=== PATIENT | male | born 1970 | race Two or more races ===

== ENCOUNTER 2021-05-21 18:24 | Emergency (ER) | payer SELFPAY ==
[~2021-05-21] VITALS: Ht 172.7 cm; Wt 72.6 kg
[2021-05-21] MEDS ORDERED: ACETAMINOPHEN 500 MG TAB PO ONE (19:45)
[2021-05-21 21:41] LABS: Basophils # (auto) 0 10 ^3/uL (0-0.2); Eosinophils # (auto) 0 10 ^3/uL (0-0.8); Eosinophils % (auto) 0.1 % (0.0-7.0); Lymphocytes # (auto) 0.7 10 ^3/uL (0.4-5.4); Monocytes # (auto) 0.3 10 ^3/uL (0-1.3); Neutrophils # (auto) 2.2 10 ^3/uL (1.6-8.6); White Blood Cell 3.3 10^3/uL (4.4-10.8)
[2021-05-21 21:46] LABS: Basophils % (auto) 0.4 % (0.0-2.0); Hematocrit 28.4 % (41.0-53.0); Hemoglobin 9.2 g/dL (13.5-17.5); Lymphocytes % (auto) 21.9 % (10.0-50.0); Mean Corpuscular Hemoglobin 22.4 pg (28.0-32.0); Mean Corpuscular Hgb Conc. 32.3 g/dL (32.0-36.0); Mean Corpuscular Volume 69.3 fL (80.0-100.0); Monocytes % (auto) 9.7 % (0.0-12.0); Neutrophils % (auto) 67.9 % (37.0-80.0); Nucleated Red Blood Cells % 0.1 %
[2021-05-21 22:00] LABS: Anion Gap 12 (5-15); Blood Urea Nitrogen 10 mg/dL (7-18); Calcium 7.6 mg/dL (8.5-10.1); Carbon Dioxide 20 mmol/L (21-32); Chloride 107 mmol/L (98-107); Glucose 97 mg/dL (74-106); Magnesium 1.8 mg/dL (1.6-2.6); Sodium 139 mmol/L (136-145)
[2021-05-21 22:02] LABS: Alanine Aminotransferase 45 U/L (16-61); Aspartate Aminotransferase 43 U/L (15-37); BUN/Creatinine Ratio 12.5; GFR African American 132 mL/min; GFR Non-African American 109 mL/min
[2021-05-21 22:07] LABS: Alkaline Phosphatase 74 U/L (45-117); Bilirubin, Total 0.5 mg/dL (0.2-1.0); Total Protein 7.6 g/dL (6.4-8.2)
[2021-05-21 22:11] LABS: Red Cell Distribution Width 21.6 % (11.8-14.3)
[2021-05-21 22:28] LABS: Potassium 2.8 mmol/L (3.5-5.1)
[2021-05-21] MEDS: POTASSIUM CHL 20MEQ/100ML 100 ML IV SCH (23:29)
[2021-05-21 23:34] LABS: Urine Bacteria NONE SEEN /hpf (None Seen); Urine Blood 3+ /uL (Negative); Urine Mucus FEW (None Seen); Urine WBC 359 /hpf (0 - 3); Urine WBC Clumps PRESENT /hpf (None Seen)
[2021-05-22] MEDS ORDERED: ONDANSETRON HCL 4 MG/2 ML VIAL IV ONE (00:30)
[2021-05-22] MEDS ORDERED: KETOROLAC TROMETH 30 MG/ML 1ML VIAL IV ONE (00:30)
[2021-05-22] MEDS: POTASSIUM CHL 20MEQ/100ML 100 ML IV SCH (01:29)
[2021-05-22] MEDS ORDERED: METOCLOPRAMIDE HCL 5MG/ml INJ 2ml VIAL IV ONE (03:45)
[2021-05-22] MEDS ORDERED: fentaNYL CITRATE 100 MCG/2 ML VL IV ONE (03:45)
[2021-05-22 06:28] LABS: Calcium 6.8 mg/dL (8.5-10.1); Potassium 3.4 mmol/L (3.5-5.1)
[2021-05-22 06:31] LABS: BUN/Creatinine Ratio 17.3
[2021-05-22 08:54] VITALS: BP 122/74
== END 2021-05-22 11:05 | disposition home or self-care (01) ==
LOC: ER 18:24 → EDBD 18:24 → ER 05-22 11:05
DX: U07.1 COVID-19 (principal); J12.82 Pneumonia due to coronavirus disease 2019; R11.2 Nausea with vomiting, unspecified; F17.210 Nicotine dependence, cigarettes, uncomplicated
CPT/HCPCS: 36415; 71045; 74176; 80048; 80053; 81001; 83735; 84484; 85025; 87426; 93005; 96361; 96374; 96375; 99285; J1885; J2405; J2765; J3010; J3480